=== PATIENT | female | born 1955 | race Caucasian/White ===

== ENCOUNTER 2018-05-07 15:17 | Emergency (ER) | payer OTHER ==
[~2018-05-07] VITALS: Ht 157.5 cm; Wt 85.0 kg
[~2018-05-07 15:17] MED LIST: AMARYL4 MG PO; CIPROFLOXACIN250 MG OR; CIPROFLOXACN500 MG PO; ESTRACE2 MG PO; FLEXERIL10 MG PO; GLUCOPHAGE1000 MG PO; HYDROCODONE/ACE1 TAB PO; LISINOPRIL5 MG PO; LORTAB 7.5 PO; MEDDOSEPAK PO; MEDROL4 M1 PO; METFORMIN1000 MG PO; METRONIDAZOL500 MG PO; NORCO1 TAB PO; PERCOCET 10/31 COMBO PO; SOMA350 MG PO; XANAX0.5 MG PO
[2018-05-07] MEDS ORDERED: NORCO1 TA1 PO (15:32)
[2018-05-07] MEDS ORDERED: TRAMADOL HCL50 MG PO (15:33)
[2018-05-07] MEDS ORDERED: RESTORIL15 MG PO (15:34)
[2018-05-07] MEDS ORDERED: MELOXICAM7.5 MG PO (15:48)
[2018-05-07] MEDS ORDERED: ULTRAM50 M1 PO (18:16)
[2018-05-07] MEDS ORDERED: AMOXICILLIN500 MG PO (18:16)
[2018-05-07 18:19] VITALS: BP 167/86
== END 2018-05-07 18:25 | disposition home or self-care (01) | DRG 159 ==
LOC: ED 15:17
PROC: 0HQ1XZZ Repair Face Skin, External Approach (ICD-10-PCS; principal; 2018-05-07)
DX: S01.511A Laceration without foreign body of lip, initial encounter (principal); S00.31XA Abrasion of nose, initial encounter; S60.511A Abrasion of right hand, initial encounter; S80.211A Abrasion, right knee, initial encounter; S33.5XXA Sprain of ligaments of lumbar spine, initial encounter; W01.0XXA Fall on same level from slipping, tripping and stumbling without subsequent striking against object, initial encounter; Y92.481 Parking lot as the place of occurrence of the external cause; Y99.0 Civilian activity done for income or pay

== ENCOUNTER 2018-05-18 17:22 | Emergency (ER) | payer OTHER ==
[~2018-05-18] VITALS: Ht 157.5 cm; Wt 82.7 kg
[~2018-05-18 17:22] MED LIST changes: +AMOXICILLIN500 MG PO; +MELOXICAM7.5 MG PO; +NORCO1 TA1 PO; +RESTORIL15 MG PO; +TRAMADOL HCL50 MG PO; +ULTRAM50 M1 PO
[2018-05-18 18:42] LABS: HEMATOCRIT 47.9 % (37.0-47.0); HEMOGLOBIN 16.3 g/dl (12.0-16.0); IMMATURE GRANULOCYTES 0.2 % (0.0-5.0); MEAN CELL VOLUME 93.7 fL CALC (80.0-100.0); MEAN CORPUSCULAR HGB 31.9 pG CALC (26.0-32.0); NEUT# 7.11 thou/uL (2.00-7.15); RED BLOOD COUNT 5.11 mill/uL (4.20-5.60)
[2018-05-18 18:43] LABS: URINE BILIRUBIN - DIPSTICK NEGATIVE (NEGATIVE); URINE BLOOD DIPSTICK NEGATIVE (NEGATIVE); URINE CLARITY CLEAR; URINE COLOR YELLOW; URINE GLUCOSE - DIPSTICK NEGATIVE (NEGATIVE); URINE KETONE TRACE mg/dL (NEGATIVE); URINE LEUK ESTERASE NEGATIVE (NEGATIVE); URINE NITRITE - DIPSTICK NEGATIVE (Negative); URINE PH 5.5 (4.5-8.0); URINE PROTEIN - DIPSTICK NEGATIVE (NEG-TRACE); URINE SPECIFIC GRAVITY 1.025; URINE UROBILINOGEN - DIPSTICK 0.2 E.U./dL (0.2)
[2018-05-18 19:00] LABS: ALBUMIN 4.9 g/dL (3.2-5.0); ALKALINE PHOSPHATASE 98 u/l (38-126); ANION GAP 13 (6-22 (CALC)); BILIRUBIN, TOTAL 0.4 mg/dL (0.0-1.4); BUN 13 mg/dL (8-23); BUN/CREATININE RATIO 22 (12-20 (CALC)); CARBON DIOXIDE 29 mmol/l (22-30); CHLORIDE 104 mmol/l (95-108); CREATININE 0.6 mg/dL (0.5-1.0); GFR > 60 ML/MIN (>=60 (CALC)); GFR FOR AFR.AMER. > 60 ML/MIN (>=60 (CALC)); SGPT/ALT 34 u/l (11-66); SODIUM 142 mmol/l (137-146)
[2018-05-18 19:10] LABS: SGOT/AST 46 u/l (9-36)
[2018-05-18 22:05] VITALS: BP 148/89
== END 2018-05-18 22:05 | disposition home or self-care (01) | DRG 103 ==
LOC: ED 17:22
PROVIDERS: Emergency Medicine
DX: R51 Headache (principal); C91.10 Chronic lymphocytic leukemia of B-cell type not having achieved remission; D72.829 Elevated white blood cell count, unspecified; B19.20 Unspecified viral hepatitis C without hepatic coma; E11.9 Type 2 diabetes mellitus without complications
CPT/HCPCS: Q9967

== ENCOUNTER → 2018-12-03 | Outpatient (REF) | payer OTHER | END | disposition home or self-care (01) | DRG 638 | LOC: LAB 07:41 | PROVIDERS: ATTEND Internal Medicine | DX: E11.9 Type 2 diabetes mellitus without complications (principal); C91.90 Lymphoid leukemia, unspecified not having achieved remission; Z00.01 Encounter for general adult medical examination with abnormal findings; Z79.899 Other long term (current) drug therapy; M19.90 Unspecified osteoarthritis, unspecified site; G47.00 Insomnia, unspecified; M54.5 Low back pain; M25.50 Pain in unspecified joint ==

== ENCOUNTER → 2018-12-19 | Outpatient (REF) | payer OTHER | END | disposition home or self-care (01) | DRG 552 | LOC: DI 11:57 | PROVIDERS: ATTEND Internal Medicine | DX: M54.5 Low back pain (principal); M79.605 Pain in left leg; M79.604 Pain in right leg ==

== ENCOUNTER 2020-08-24 18:37 | Emergency (ER) | payer OTHER ==
[~2020-08-24] VITALS: Ht 157.5 cm; Wt 72.7 kg
[2020-08-24] MEDS ORDERED: OMNI-PAC300 MG PO (18:48)
[2020-08-24 19:05] VITALS: BP 164/71
== END 2020-08-24 19:05 | disposition home or self-care (01) | DRG 603 ==
LOC: ED 18:37
DX: L03.115 Cellulitis of right lower limb (principal); C95.90 Leukemia, unspecified not having achieved remission; E11.9 Type 2 diabetes mellitus without complications; B19.20 Unspecified viral hepatitis C without hepatic coma; Z79.84 Long term (current) use of oral hypoglycemic drugs

== ENCOUNTER 2024-11-09 08:37 | Emergency (ER) | payer OTHER, MEDICARE ==
[~2024-11-09] VITALS: Ht 157.5 cm; Wt 73.0 kg
[~2024-11-09 08:37] MED LIST changes: +OMNI-PAC300 MG PO
[2024-11-09 08:46] VITALS: BP 131/93
[2024-11-09] MEDS ORDERED: ONDANSETRON HCl 4 MG/2 ML SDV IV ONE (08:55)
[2024-11-09] MEDS ORDERED: MORPHINE SULFATE 4 MG/ML VIAL IV ONE ×2 (08:55→11:25)
[2024-11-09 09:12] LABS: BASO% 0.6 % (0-3); EOS% 4.6 % (0-8); HEMATOCRIT 45.6 % (37.0-47.0); HEMOGLOBIN 14.5 g/dl (12.0-16.0); IMMATURE GRANULOCYTES 0.9 % (0.0-5.0); MEAN CELL VOLUME 96.6 fL CALC (80.0-100.0); MEAN CORPUSCULAR HGB 30.7 pG CALC (26.0-32.0); MEAN CORPUSCULAR HGB CONC 31.8 g/dL CAL (32.0-36.0); MONO% 6.3 % (2-13); NEUT# 4.77 thou/uL (2.00-7.15); NEUT% 51.6 % (42-76); RED BLOOD COUNT 4.72 mill/uL (4.20-5.60); RED CELL DISTRI WIDTH 12.2 % (11.5-15.5)
[2024-11-09 09:23] LABS: ALBUMIN 4.7 g/dL (3.2-5.0); ANION GAP 11 (6-22 (CALC)); BILIRUBIN, TOTAL 0.4 mg/dL (0.02-1.3); BUN 18 mg/dL (8-23); BUN/CREATININE RATIO 25 (12-20 (CALC)); CARBON DIOXIDE 29 mmol/l (22-30); CHLORIDE 102 mmol/l (95-108); CREATININE 0.7 mg/dL (0.5-1.0); ESTIMATED GFR 95 ML/MIN (>=90 (CALC)); LIPASE 53 u/l (23-300); POTASSIUM 4.1 mmol/l (3.5-5.1); SGOT/AST 46 u/l (9-36); SODIUM 138 mmol/l (137-146); TOTAL PROTEIN 7.3 g/dL (6.3-8.2)
[2024-11-09 09:29] LABS: ALKALINE PHOSPHATASE 107 u/l (38-126)
[2024-11-09 11:00] VITALS: BP 128/78
[2024-11-09] MEDS ORDERED: HYDROCO/APAP1 TA9 PO (11:24)
[2024-11-09 11:29] VITALS: BP 128/78
== END 2024-11-09 11:35 | disposition home or self-care (01) | DRG 605 ==
LOC: ED 08:37
PROVIDERS: Family Medicine
DX: S10.93XA Contusion of unspecified part of neck, initial encounter (principal); M25.511 Pain in right shoulder; R07.89 Other chest pain; M25.562 Pain in left knee; M25.561 Pain in right knee; C91.10 Chronic lymphocytic leukemia of B-cell type not having achieved remission; B19.20 Unspecified viral hepatitis C without hepatic coma; E11.9 Type 2 diabetes mellitus without complications; V48.5XXA Car driver injured in noncollision transport accident in traffic accident, initial encounter; Z79.84 Long term (current) use of oral hypoglycemic drugs
CPT/HCPCS: J2405; Q9967